=== PATIENT | female | born 1980 | race Caucasian/White ===

== ENCOUNTER 2017-01-26 23:32 | Emergency (ER) | payer MEDICAID ==
[~2017-01-26] VITALS: Ht 165.1 cm; Wt 73.5 kg
[2017-01-26 23:38] VITALS: BP 125/79
== END 2017-01-27 00:56 | disposition home or self-care (01) ==
LOC: ER 23:33
DX: K02.9 Dental caries, unspecified (principal); K04.7 Periapical abscess without sinus; F17.200 Nicotine dependence, unspecified, uncomplicated
CPT/HCPCS: 99283; 99406; A4606; Z7610